=== PATIENT | male | born 1980 | race Caucasian/White ===

== ENCOUNTER 2017-05-21 09:14 | Day surgery (SDC) | payer SELFPAY ==
[~2017-05-21] VITALS: Ht 167.6 cm; Wt 62.9 kg
[2017-05-21] VITALS (10 sets, daily range): BP systolic 116–148; BP diastolic 62–99; PULSE 38–67; RESP 15–19; O2SAT 97–100
[~2017-05-21 09:14] MED LIST: CeFAZolin 2 Gm/50 mL D5W IV Premix IV ONE; Dexamethasone 4 mg/mL Inj IVPUSH PRN; EPHEDrine Sulfate 50 mg/mL Inj IVPUSH PRN; HYDROmorphone 1 mg/mL Inj IVPUSH PRN; Lactated Ringer's 1,000 ML IV SCH; Lactated Ringer's 500 ML IV PRN; MetoCLOpramide 5 mg/mL 2 mL Inj IVPUSH PRN; NORT25CA PO; Ondansetron 2 mg/mL 2 mL Inj IVPUSH PRN; Phenylephrine 10,000 mCg/mL Inj IVPUSH PRN; TRAM-14 PO; fentaNYL-PF 50 mCg/mL 2 mL Inj IVPUSH PRN
[2017-05-21] MEDS ORDERED: fentaNYL-PF 50 mCg/mL 2 mL Inj ONE (09:15)
[2017-05-21] MEDS ORDERED: Ondansetron 2 mg/mL 2 mL Inj ONE (09:15)
[2017-05-21] MEDS ORDERED: Propofol 10 mg/mL 20 mL Inj ONE (09:15)
[2017-05-21] MEDS: Lactated Ringer's 1,000 ML IV SCH ×3 (09:45→13:05)
--- NOTE | 2017-05-21 11:02 | PCM.HPANE ---
Patient Data Surgeon Admitting Provider: Attending Provider:Janina Arnold MD Primary Care Physician:Other,Physician Other Provider:Nicole Dumas Anesthesia Reason for Visit Left Spermatocele Ht/WT & BMI Height (Feet): 5 Height (Inches): 6 Weight (Kilograms): 62.9 Body Mass Index 22.00 Allergies Coded Allergies: No Known Allergies (Unverified , 05/20/17) Past Anesthesia History Anesthesia History: Denies:: Fam Anesthesia Reaction, Fam Malignant Hypertherm Diabetes History Hx Diabetes?: No MRSA MRSA: No Medications Home Meds Incl Beta Ronaldo: No Discontinued Reported Medications Nortriptyline 25 Mg [id number] Mg PO HS 05/20/17 Tramadol (Ultram)50 Mg [id number] Mg PO Q6H PRN Pain Ref 0 05/20/17 History History of ENT Problems?: Yes HEENT History: Denies:: Abnormal Airway Cataracts Difficult Intubation Dysphagia Glaucoma Hearing Problem Sinus Problem TMJ Denture Type: None Teeth Condition: Within Normal Limits Hx of Heart Problems?: No Cardiovascular History: Denies:: Heart Murmur Hypertension Hx of Respiratory Problem?: No Respiratory History: Denies:: Use of C-PAP Machine (SNORES) Hx Neurologic Problems?: No Hx of GI Problems?: No Hx of Problems?: No Male Hx: Positive for:: Scrotal Mass (LT SPERMATOCELE=CURRENT PROBLEM) Denies:: Prostate Problems Testicular Surgery Skin History: Denies:: History Skin Disorders? Pressure Ulcers Hx Musculoskeletal Problems?: No Hx of Psycho/Social Problems?: No Hx Surgeries?: No Hx Any Other Health Problems?: No Other History: Denies:: Cancer Endocrine Disease Hospitalization Thyroid Disease History Blood Transfusions: Denies:: Blood Transfusions Hx Diabetes: No Hx Alcohol Use: NoHx Substance Use: Yes (WEEKLY MARIJUANA)Have You Smoked inLast 12 mo: No Stop/Bang Treated for Sleep Apnea?: No Do You Have a CPAP Machine?: No S-Snoring: Do You Snore Loudly: Yes T-Tired: feel tired, fatigued: Yes O-Obsered: Observed not breath: No P-Blood Pressure: treated: No B- Body Mass Index > 35 kg/m2: No A- Age over 50: No N- Neck Large Circumference: No G- Gender Male: Yes LOGAN Total Score: 3 Risk Assessment Category Category 1A: Patient has history of documented sleep apnea, and HAS NOT received any narcotic, sedative or anesthesia administration during this stay. Category 1B: Patient has history of documented sleep apnea, and HAS received any narcotic , sedative or anesthesia administration during this stay Category 2: Patient has SUSPECTED Obstructive Sleep Apnea, and HAS received any narcotic , sedative or anesthesia administration during this stay. Category 3: Patient has SUSPECTED Obstructive Sleep Apnea and HAS NOT received narcotic, sedative or anesthesia administration during this stay. Category 4: Outpatient in Procedural Areas with known sleep apnea or who screen positive for High Risk via the STOP/BANG questionnaire. Exam Exam Vital Signs Vital Signs Date Time Temp Pulse Resp B/P Pulse Ox O2 Delivery O2 Flow Rate FiO2 05/21/17 09:48 36.3 67 17 116/62 98 Room Air General Appearance: Alert, Oriented X3, Cooperative, No Acute Distress HEENT/AIRWAY: MP 2 Lungs: Clear to Auscultation, Normal Air Movement Heart: Exam Unremarkable, Regular Rate/Rhythm, No Murmurs/Rubs/Gallops Meds/Labs/Diagnostics Admission Meds Current Medications Lactated Ringer's (Lr) 1,000 ml @ 120 mls/hr Q8H20M IV Last administered on t 09:45; Start 05/21/17 at 05:00; Stop 05/21/17 at 13:19 Plan Impression Patient chart reviewed, patient interviewed and anesthestic plan with risks, benefits, and alternatives discussed, and informed consent obtained. ASA Physical Status: ASA2 Mod Systemic Disease Anesthetic Plan: GA Bene/Risks/Altern/Consents: Yes HP Complete Prior to Induction: Yes Jaylan Corona MD May 21, 2017 11:02
[2017-05-21] MEDS ORDERED: Bupivacaine-MPF 0.5% 30 mL Inj INFILTRATE ONE (11:36)
[2017-05-21] MEDS ORDERED: HYDROcodone-APAP 5-325 mg Tablet PO PRN (12:20)
[2017-05-21] MEDS ORDERED: Ondansetron 8 mg ODT Tablet PO PRN (12:20)
--- NOTE | 2017-05-21 13:51 | PCM.ANEP1 ---
Post Anesthesia PACU Phase 1 Assessment Vital Signs Vital Signs Date Time Temp Pulse Resp B/P Pulse Ox O2 Delivery O2 Flow Rate FiO2 05/21/17 13:05 43 16 148/99 98 Room Air 05/21/17 12:55 59 15 143/86 99 Room Air 05/21/17 12:40 53 16 139/81 99 Simple Mask 05/21/17 12:35 39 15 140/81 100 Simple Mask 10 05/21/17 12:30 40 16 129/81 100 Simple Mask 10 05/21/17 12:25 38 19 127/79 100 Simple Mask 10 05/21/17 12:20 36.6 41 15 118/75 100 Simple Mask 10 05/21/17 09:48 36.3 67 17 116/62 98 Room Air Anesthetic Administered: GA Level of Alertness: Awake, talking GROSSMAN's with Equal Strength: Yes Pain: No Nausea or Vomiting: No CV Function & Hydration Stable: Yes Airway Device: Oralpharangeal Airway Oxygen Delivery: Simple Mask Lungs: Clear to Auscultation, Normal Air Movement Dermatome Level: Full Sensation PACU Phase 2 Assessment Complications: No Follow up Care: No Patient Instructions Provided: N/A Jaylan Corona MD May 21, 2017 13:51
--- NOTE | 2017-05-22 09:19 | OP ---
[address] [address] OPERATIVE REPORT PATIENT: MIMI RIVERA : 1980 MR#: [id number] ADMIT: 05/21/2017 JOB ID: [id number] DATE OF SURGERY: 05/21/2017 PROCEDURE NAME: Left spermatocelectomy. SURGEON: Janina Arnold MD. PREOPERATIVE DIAGNOSIS(ES): Left spermatocele and small hydrocele. POSTOPERATIVE DIAGNOSIS(ES): Left spermatocele and small hydrocele. INDICATION: The patient is a 36-year-old gentleman with a great deal of bother from a fairly large 5 cm spermatocele on the left, complex, with a small hydrocele. After counseling extensively about risks and benefits, wishing to proceed with spermatocelectomy. This patient was counselled specially given his pain complaints regarding the spermatocele that this is generally a benign process not associated with large degrees of pain and therefore, if he has some chronic scrotal pain or testis pain, this may not improve after his procedure but it will certainly get rid of the bulk and the chaffing and the pressure associated with spermatocele. He wished to proceed. PROCEDURE IN DETAIL: After appropriate informed consent was obtained, the patient was brought to the operating room. He received IV antibiotics prior to onset of procedure. SCD were placed. He was carefully placed in the prone position. All pressure points carefully padded. Cleaned, prepped and draped in the usual sterile fashion. After general anesthesia, the area overlying the midline raphae was infiltrated with Marcaine. A midline incision went down through the dartos. Peeled away the layers to expose the left testis/hydrocele/spermatocele complex. This was delivered out. We did have to remove a small, thin left-sided hydrocele to get to the spermatocele. This was so thin walled, it was really nothing to oversew. However, we did cauterize the edges of this quite assertively. We then started working on the spermatocele/spermatocele complex, which was several larger pockets and segments. We removed all of the spermatocele/spermatocele complex. Cauterized the edges quite firmly once again. This was not thick enough or organized enough to oversew. Therefore, we gave extra attention to assiduous cauterization of all the edges with care taken to avoid the major vessels and vas deferens. Hemostasis was quite good by the end. We irrigated with Ancef solution copiously and then closed with a layer of 2-0 Vicryl suture for the muscle layer, the testis replaced in anatomical position. The wound itself was closed with 2-0 chromic suture in a running fashion. We used again Marcaine without epinephrine for incisional pain control and also gave him a cord block on this side. A sterile dressing was applied and supportive underwear. He tolerated the procedure well. Hemostasis was good. Awakened and taken in stable condition to the postanesthesia care unit.
== END 2017-05-21 23:59 | disposition home or self-care (01) ==
LOC: SAS 09:14
PROVIDERS: ATTEND Urology
DX: N43.42 Spermatocele of epididymis, multiple (principal); N50.82 Scrotal pain; R35.1 Nocturia
CPT/HCPCS: 54840; J0690; J1885; J2250; J2405; J3010; J7120